=== PATIENT | female | born 1955 | race African-American/Black ===

== ENCOUNTER 2016-06-12 09:34 | Emergency (ER) | payer OTHER ==
[2016-06-12 09:47] VITALS: TEMP 98.5; BMI 24.7
[2016-06-12] MEDS ORDERED: SODIUM CHLORIDE 0.9% 3 ML FLUSH FLUSH PRN (10:36)
[2016-06-12] MEDS ORDERED: ONDANSETRON HCL 4 MG/2 ML VIAL IV ONE (10:36)
[2016-06-12] MEDS ORDERED: NS 1,000 ML IV ONE ×2 (10:36)
[2016-06-12 10:46] LABS: AUTOMATED BASOPHIL 0.5 % (0-2); AUTOMATED EOSINOPHIL 2.1 % (0-5); AUTOMATED LYMPH 16.8 % (17-44); AUTOMATED MONOCYTE 3.6 % (3-10); MPV 8.3 fL (7.4-10.4)
[2016-06-12] MEDS ORDERED: HYDROmorphone 1 MG INJECTION IV ONE (10:47)
--- NOTE | 2016-06-12 10:54 | EDPRACDOC ---
- General Information Chief Complaint: Generalized Weakness Stated Complaint: VOMITING/WEAKNESS Time Seen by Provider: 06/12/16 10:27 Information Source: Patient Home Medications: Home Medications Amlodipine [Norvasc] 5 mg PO BID 06/05/14 Paroxetine HCl [Paxil] 20 mg PO DAILY 08/30/14 Cetirizine HCl [Zyrtec] 10 mg PO DAILY 09/04/14 Dicyclomine HCl [Bentyl] 10 mg PO BID 06/12/16 Hydrocodone Bit/Acetaminophen [Hydrocodon-Acetaminophen 5-325] 1 tab PO Q4H PRN #14 tab 06/12/16 Ondansetron [Zofran Odt] 4 mg PO Q6H #20 tab.rapdis 06/12/16 Promethazine HCl [Phenergan] 25 mg CA Q8H PRN #15 supp 06/12/16 Allergies/Adverse Reactions: Allergies Allergy/AdvReac Type Severity Reaction Status Date / Time Penicillins Allergy Severe Angioedema* Verified 06/12/16 09:47 - History of Present Illness Onset: 1 WEEK HPI: PT PRESENTS TO ED WITH N/V AND GENERALIZED WEAKNESS FOR APPROX 1 WEEK. STATES SHE WAS DXD WITH STOMACH CANCER 2 YEARS AGO AND WAS TOLD SHE NEEDED TO HAVE SOME OF HER STOMACH REMOVED BUT NEVER DID. STATES SHE TAKE BENTYL FOR COLON SPASMS BUT THAT ISNT WORKING AT THIS TIME. NO FEVERS AT THIS TIME. PT STATES SHE HAD NOT HAD BOWEL MOVEMENT IN SEVERAL DAYS BUT LAST NIGHT SHE HAD SMALL AMOUNT OF DIARRHEA THIS AM. STATES VOMITED APPROX 5 TIMES YESTERDAY AND 3-4 TIMES THIS AM. STATES SHE CANT KEEP ANYTHING DOWN. Symptoms Occured: Reports: Spontaneous Duration: Reports: Since Onset Emesis: Reports: Bilious, Food Particles Recent: Reports: None Pain Quality: Reports: Cramping (INTERMITTENT) Pain Severity: Moderate (WHEN CRAMPING) Pain Location: Reports: Diffuse : No History of: Reports: UTI Associated Signs & Symptoms: Reports: Nausea, Vomiting Oral Intake: Decreased Urinary Output: Normal ED Past Medical History - History Reviewed Yes Nurses notes reviewed and agree except as marked Travel Outside of [place] in the Last 3 Months?: No - Patient Medical History Cardiac History: Reports: Hypertension Respiratory History: Reports: Asthma, COPD, Pneumonia GI/ History: Reports: Urinary Tract Infection, Gastroesophageal Reflux, Ulcer Musculoskeletal History: Reports: Arthritis Psychological History: Reports: Depression, Anxiety. Denies: Substance Use Disorder Systemic History: Reports: Cancer (STOMACH NO TREATMENT TO DATE), Anemia (14 transfusions & 9 IV iron) Additional Past Medical History: CYCLICAL VOMITING (PROB NARCOTIC WITHDRAWL) Surgical History: Reports: Other (stomach). Denies: Hysterectomy - Family Medical History Reports: Hypertension (both sides), Diabetes (grandparents), Cancer (Mom-colon CA/Aunt-colon CA), Stroke (both sides) - Social Medical History Smoking Status: Heavy tobacco smoker (5 or more cigarettes/day or daily pipe/ cigar) Social History: Denies: Substance Use Disorder ETOH: None Substance Abuse: None Lives With: Spouse Lives In: Home EDM Review of Systems - Review of Systems ROS Negative Except as Marked: Yes All systems reviewed and were negative except as marked Constitutional: No Symptoms Reported. negative: Fever, Chills, Weakness, Fatigue, Loss of Appetite Eyes: No Symptoms Reported. negative: Redness, Blurred Vision, Double Vision, Discharge, Pain, Light Sensitive, Photophobia Ears: No Symptoms Reported. negative: Pain, Hearing Loss, Drainage, Ear Pulling Throat: No Symptoms Reported. negative: Pain, Swelling Nose: No Symptoms Reported. negative: Congestion, Bleeding, Discharge, Injection, Swelling, Deformity, Ecchymosis, Tender, Abrasion, Laceration Mouth: No Symptoms Reported. negative: Pain, Drooling Respiratory: No Symptoms Reported. negative: Cough, Brassy Cough, Barky Cough, Shortness of Breath, Wheezing, Hemoptysis Cardiovascular: No Symptoms Reported. negative: Chest Pain, Palpitations, Syncope, Edema, Orthopnea, PND, Skin Mottling, Cyanosis Gastrointestinal: Nausea, Pain (INTERMITTENT CRAMPING), Vomiting. negative: Constipation, Diarrhea, Formula Intolerance, Melena Genitourinary: No Symptoms Reported. negative: Dysuria, Hematuria, Frequency, Discharge, Bleeding, Testicular Pain, Neurological: No Symptoms Reported. negative: Headache, Dizziness, Seizure, Numbness, Weakness, Speech Difficulty, Gait Difficulty Musculoskeletal: No Symptoms Reported. negative: Neck, Chestwall, Ribs, Back, Shoulder, Arm, Elbow, Forearm, Wrist, Hand, Pelvis, Hip, Femur, Knee, Leg, Ankle , Foot Integumentary: No Symptoms Reported. negative: Itching, Rash, Bruising, Wound Allergic/Immunologic: No Symptoms Reported. negative: Hives, Itching Hematologic: No Symptoms Reported. negative: Lymphadenopathy, Easy Bruising, Easy Bleeding Endocrine: No Symptoms Reported. negative: Weight Gain, Weight Loss Psychiatric: No Symptoms Reported. negative: Anxiety, Depression, Hallucinations, Insomnia, Suicidal - Physical Exam Constitutional: No apparent distress, Alert (Awake) Oriented to: Time, Person, Place Last recorded Vital Signs: Last Vital Signs Temp 98.5 F 06/12/16 09:44 Pulse 63 06/12/16 10:43 Resp 20 06/12/16 10:43 BP 139/80 06/12/16 10:43 Pulse Ox 99 06/12/16 10:43 Oxygen Pulse Oxygen Saturation 99 O2 Device Room Air Oxygen Flow Rate Fraction of Inspired Oxygen ( FIO2) - HEENT Head: Normal ( normocephalic) Eye Exam: Normal (PERRL, EOMI, Sclera white) Oropharynx: Normal (Pharynx:Moist without exudate,Gums-no swelling) Tympanic Membrane: Normal ENT EAC: Normal TMJ: Normal Nose: No Symptoms Reported (septum midline) Neck: Normal (FROM, trachea at midline) - Respiratory/Cardiovascular Respiratory: Normal - CTA (BBS clear to auscultation without adventitious sounds ) Cardiovascular: Normal (RRR without murmur, gallop or rub) - GI Auscultation: Normal (NABS) Palpation: Normal (Soft,No rebound or guarding, non distended) Tenderness: Diffuse, Mild Landers's Sign: Negative - Bladder: Normal - Musculoskeletal Back: Normal (Non-Tender) Extremities: Normal (Normal tone, Pulses 2+ No cyanosis or edema, FROM) - Integumentary Skin: Normal, Warm, Dry Lymphatics: Normal (no adenopathy) - Neurologic Memory Impaired: Normal Motor Function: Normal (Normal tone, Pulses 2+ No cyanosis or edema, FROM) Cranial Nerve: Normal (CN II-X11 intact sensation, strength 5/5) Cerebellar: Normal Mood Description: Normal Thought: Coherent Perception: Normal - Differential Diagnosis Bowel obstruction, Dehydration, Food poisoning, Gastritis, Gastroenteritis, Urinary tract infection, Other (CONSTIPATION, NARCOTIC WITHDRAWAL. ) - Results 06/12/16 10:25 06/12/16 10:25 WBC 7.2 xk/uL (3.8-10.8) 06/12/16 10:25 RBC 4.01 xM/uL (4.20-5.40) L 06/12/16 10:25 Hgb 10.1 g/dL (12.0-16.0) L 06/12/16 10:25 Hct 31.8 % (36-47) L 06/12/16 10:25 MCV 79 fL (81-99) L 06/12/16 10:25 MCH 25.1 pg (27-32) L 06/12/16 10:25 MCHC 31.7 g/dl (33-36) L 06/12/16 10:25 RDW 19.5 % (11.5-14.5) H 06/12/16 10:25 Plt Count 258 xk/uL (130-400) 06/12/16 10:25 MPV 8.3 fL (7.4-10.4) 06/12/16 10:25 Neut % (Auto) 77.0 % (45-76) H 06/12/16 10:25 Lymph % (Auto) 16.8 % (17-44) L 06/12/16 10:25 Ransom % (Auto) 3.6 % (3-10) 06/12/16 10:25 Eos % (Auto) 2.1 % (0-5) 06/12/16 10:25 Baso % (Auto) 0.5 % (0-2) 06/12/16 10:25 Absolute Neuts (auto) 5.54 xk/uL (1.7-8.2) 06/12/16 10:25 Absolute Lymphs (auto) 1.15 xk/uL (0.65-4.75) 06/12/16 10:25 Lab Results 06/12/16 10:25 WBC 7.2 RBC 4.01 L Hgb 10.1 L Hct 31.8 L MCV 79 L MCH 25.1 L MCHC 31.7 L RDW 19.5 H Plt Count 258 MPV 8.3 Neut % (Auto) 77.0 H Lymph % (Auto) 16.8 L Ransom % (Auto) 3.6 Eos % (Auto) 2.1 Baso % (Auto) 0.5 Absolute Neuts (auto) 5.54 Absolute Lymphs (auto) 1.15 - Diagnostic Imaging CT ABD/PEL Image interpreted by: Radiologist IMPRESSION: Post gastric resection changes. Stable small fluid collection adjacent to the GE junction. Stable RIGHT adrenal nodule. No new intra-abdominal or intrapelvic abnormalities. CXR Image interpreted by: Radiologist IMPRESSION: No active disease. Decision Time to Discharge: 14:59 - Departure Disposition: Home Condition: Stable Final Diagnosis: N&V (nausea and vomiting) Qualifiers: Vomiting type: cyclical vomiting Vomiting Intractability: non-intractable Qualified Code(s): G43.A0 - Cyclical vomiting, not intractable Instructions: Weakness (General), Acute Nausea and Vomiting (ED) Education/Counseling Given To: Patient, Family Member Education/Counseling Given Regarding: Diagnosis, Prognosis, Follow Up Referrals: Osorio Chacon MD [Primary Care Provider] - One Week Chauncey Buckner MD [Staff Physician] - One Week Prescriptions: New Hydrocodone Bit/Acetaminophen [Hydrocodon-Acetaminophen 5-325] 1 tab PO Q4H PRN #14 tab PRN Reason: Pain Ondansetron [Zofran Odt] 4 mg PO Q6H #20 tab.rapdis Promethazine HCl [Phenergan] 25 mg CA Q8H PRN #15 supp PRN Reason: Nausea/Vomiting No Action Amlodipine [Norvasc] 5 mg PO BID Paroxetine HCl [Paxil] 20 mg PO DAILY Cetirizine HCl [Zyrtec] 10 mg PO DAILY Dicyclomine HCl [Bentyl] 10 mg PO BID Additional Instructions: RETURN FOR WORSE OF DIFFERENT SYMPTOMS.
[2016-06-12 10:59] LABS: BLOOD UREA NITROGEN 12 MG/DL (7-17); CALCIUM 9.1 MG/DL (8.4-10.2); CALCULATED OSMOLALITY 269 MOs/Kg (270-290); CHLORIDE 108 mEq/L (98-107); GLUCOSE 102 MG/DL (70-99); SODIUM LEVEL 140 mEq/L (137-146); TOTAL PROTEIN 8.2 G/DL (6.3-8.2)
[2016-06-12] MEDS ORDERED: Pharmacy Review for Metformin - IV Contrast Given SCH (11:00)
[2016-06-12 11:01] LABS: PARTIAL THROMB. TIME 25.7 SEC (22-35)
[2016-06-12 11:21] LABS: AMORPHOUS OCC; LEUKOCYTES/URINE TRACE (NEGATIVE); NITRITE/URINE NEG (NEGATIVE); URINE OCCULT BLOOD NEG (NEG/TRACE); WBC/URINE 20-30 (0-5)
--- NOTE | 2016-06-12 11:34 | DIRPT ---
CLINICAL DATA: Vomiting. Generalized weakness for week. EXAM: PORTABLE CHEST 1 VIEW COMPARISON: None. FINDINGS: The heart size and mediastinal contours are within normal limits. Both lungs are clear. The visualized skeletal structures are unremarkable. IMPRESSION: No active disease. Electronically Signed By: Cande Beth M.D. On: 06/12/2016 11:31
[2016-06-12] MEDS ORDERED: PROMETHAZINE 25 MG/ML VIAL IV ONE (12:14)
--- NOTE | 2016-06-12 12:28 | DIRPT ---
CLINICAL DATA: Mid abdominal pain, weakness, nausea, and vomiting for 1 week, history of gastric cancer with partial gastrectomy in 2014, prior hysterectomy EXAM: CT ABDOMEN AND PELVIS WITH CONTRAST TECHNIQUE: Multidetector CT imaging of the abdomen and pelvis was performed using the standard protocol following bolus administration of intravenous contrast. Sagittal and coronal MPR images reconstructed from axial data set. CONTRAST: Dilute oral contrast was not administered. 80 cc Isovue 370 administered IV. COMPARISON: 08/25/2015 FINDINGS: Dependent bibasilar atelectasis. Stable RIGHT adrenal nodule 22 x 15 mm image 18. Liver, gallbladder, spleen, atrophic pancreas, kidneys, and adrenal glands otherwise normal. Postsurgical changes from partial gastrectomy. Low-attenuation fluid collection adjacent to GE junction, 14 x 10 mm image 12 unchanged. No definite residual gastric mass/wall thickening, adjacent soft tissue nodularity or adenopathy. Normal appendix. Bladder and ureters unremarkable. Uterus surgically absent with nonvisualization of ovaries. Large and small bowel loops grossly unremarkable. No new mass, adenopathy, free air or free fluid. Bones unremarkable. IMPRESSION: Post gastric resection changes. Stable small fluid collection adjacent to the GE junction. Stable RIGHT adrenal nodule. No new intra-abdominal or intrapelvic abnormalities. Electronically Signed By: Jason Mercedes M.D. On: 06/12/2016 12:25
[2016-06-12 15:18] VITALS: BP 116/55; PULSE 84
[2016-06-12] MEDS ORDERED: SODIUM CHLORIDE 0.9% 3 ML FLUSH FLUSH SCH (18:00)
== END 2016-06-12 15:13 | disposition home or self-care (01) ==
LOC: ED 09:34
DX: G43.A0 Cyclical vomiting, in migraine, not intractable (principal); R10.9 Unspecified abdominal pain
CPT/HCPCS: 36415; 71010; 74177; 80053; 81001; 83880; 84484; 85025; 85610; 85730; 87040; 87077; 87086; 93005; 96361; 96374; 96375; 99284; A9698; J1170; J2405; J2550